=== PATIENT | female | born 1945 | race Caucasian/White ===

== ENCOUNTER → 2017-05-09 | Day surgery (SDC) | payer MEDICARE, OTHER ==
[~2017-05-09] VITALS: Ht 167.6 cm; Wt 97.6 kg
[~2017-05-09] MED LIST: *morphine SULFATE 10 MG/ML PERIprocedure ONLY ONE; ASCOPOW PO; BELLADONNA ALKALOIDS/OPIUM 60 MG SUPP RECTAL ONE; BUPIVACAINE HCL PF 0.5% 30 ML VIAL ONE; CHLORHEXIDINE GLUCONATE 2 % 1 PACK (2 CLOTHS) TOPICAL PRN; DO NOT ADM ANY ANTICOAGULANT DRUGS PRN; ERGO2000 PO; INSULIN HUMAN REGULAR 1,000 UNITS/10 ML VIAL SQ PRN; IOHEXOL 300 MG/ML 100 ML BTL (for Rad CT) OTHER ONE; LACTATED RINGER'S 1000 ML IV PRN; LACTCAP8 PO; MAGN100T2 PO; METF500T4 PO; METOPROLOL TARTRATE 25 MG TAB PO PRN; ONDANSETRON HCL 4 MG/2 ML VIAL IV PUSH PRN; POVIDONE IODINE 5% (ANTISEPSIS KIT) 4 APPLICATIONS EACH NARE PRN; SODIUM CHLORID 0.9% 500 ML IV PRN; VALS1TAB70 PO; VITALIQ PO; ceFAZolin 1,000 MG/NS 100 ML IV SCH; oxyCODONE/ACETAMINOPHEN 5 MG/325 MG TAB PO PRN
[2017-05-09 10:08] LABS: AUTOMATED NEUTROPHIL # 3.7 TH/MM3 (1.8-7.7); BASOPHIL # 0.1 TH/MM3 (0-0.2); EOSINOPHIL # 0.1 TH/MM3 (0-0.4); EOSINOPHIL % 2.1 % (0.0-4.0); HEMATOCRIT 40.6 % (35.0-46.0); HEMOGLOBIN 13.8 GM/DL (11.6-15.3); LYMPH % 28.8 % (9.0-44.0); LYMPHOCYTE # 1.7 TH/MM3 (1.0-4.8); MEAN CELL VOLUME 93.7 FL (80.0-100.0); MEAN CORPUSCULAR HEMOGLOBIN 31.8 PG (27.0-34.0); MEAN PLATELET VOLUME 8.2 FL (7.0-11.0); MONO % 7.3 % (0.0-8.0); MONOCYTE # 0.4 TH/MM3 (0-0.9); NEUT % 60.8 % (16.0-70.0); PLATELET COUNT 195 TH/MM3 (150-450); RED BLOOD COUNT 4.34 MIL/MM3 (4.00-5.30); RED CELL DISTRIBUTION WIDTH 13.2 % (11.6-17.2)
--- NOTE | 2017-05-09 12:14 | PD.OP ---
Operative Report Date of Surgery: May 09, 2017 Preoperative Diagnosis: Hematuria, irritative voiding systems, history of positive urine cytology, recurrent urinary tract infections Postoperative Diagnosis: Cystitis, hematuria, irritative voiding symptoms with a history of a positive urine cytology, a current urinary tract infections Procedure: Cystoscopy with multiple bladder biopsies, fulguration of right lateral wall, selective urine cytologies and bilateral retrograde studies, with instillation of Marcaine into the bladder Anesthesia: Gen. LMA Surgeon: Murtaza Boyer Final Block Press Operator(s): None Resident Surgeon: None Operation and Findings: 71-year-old female presents with history of a positive urine cytology the past with hematuria and irritative voiding systems with recurrent urinary tract infections in the past. Decision was made to bring the patient to the operating room to undergo cystoscopy with bladder biopsies with bilateral retrograde studies and selective cytologies. Risk and benefits were discussed preoperatively and she is willing to proceed. The patient was brought to the operating room and identified by myself as Liana Gutierrez. She was placed in the dorsal lithotomy position, prepped and draped in usual sterile fashion, received preprocedure antibiotics and general endotracheal tube anesthesia was administered. 22 Dominican scope was inserted into the bladder. [address] showed erythema throughout the trigone and primarily along the right lateral wall. This area was erythematous and would bleed easily. A 5 Dominican opening catheter was inserted into the right ureteral orifice. Saline was injected into the right collecting system and a selective cytology from this area was sent. A retrograde pyelogram was performed. No filling defects or abnormalities were identified within the right ureter or collecting system. This was repeated again on the left side and no abnormalities were identified on the retrograde pyelogram. Selective cytology was also sent from the left collecting system. Using the cold cup biopsy forcep, multiple bladder biopsies were taken from the right lateral wall dome and left lateral wall. These areas were then fulgurated with the rollerball. The right lateral wall, due to all the erythema , was fulgurated then with the rollerball. Care was taken to avoid the ureteral orifices. 30 cc of half percent Marcaine with then instilled in the bladder through a 16 Dominican Will catheter. The patient was awoken and transferred to room in stable condition. She tolerated the procedure well. She 'll follow-up in the office in a few weeks to undergo review of her pathology report. She may need to be placed on suppressive antibiotics in the future due to findings of cystitis. We will await biopsy results. Murtaza Boyer DO May 09, 2017 12:14
--- NOTE | 2017-05-09 13:09 | RADRPT ---
EXAM DATE/TIME: 05/09/2017 11:32 [facility] COMPARISON: No previous studies available for comparison. INDICATIONS : Bladder biopsy, diliated ureters, obstruction. 2.40 minutes 9 CONTRAST: Instilled by Ordering Physician MEDICAL HISTORY : Renal calculi. SURGICAL HISTORY : None. ENCOUNTER: Initial ACUITY: 1 day PAIN SCORE: Non-responsive. LOCATION: Bilateral abdomen FINDINGS: 7 images were recorded digitally in the operating room using C-arm during retrograde pyelogram. Contr ast is present within the collecting system and ureters. CONCLUSION: Intraoperative images. Merlin Busch MD on May 09, 2017 at 13:06 Board Certified Radiologist. This report was verified electronically.
[2017-05-09 14:22] VITALS: BP 158/73; PULSE 54; RESP 20; TEMP 97.5; O2SAT 97
--- NOTE | 2017-05-10 09:53 | EKG ---
Date Performed: 05/09/2017 Time Performed: 08:49:16 PTAGE: 71 years EKG: Sinus rhythm WITH OCCASIONAL VENTRICULAR PREMATURE COMPLEXES LEFT BUNDLE BRANCH BLOCK ABNORMAL ECG Compared to PREVIOUS TRACING , left bundle branch block is new, clinical correlation is recommended. PREVIOUS TRACIN12/30/2008 11.18 DOCTOR: Charbel Tsang Interpretating Date/Time 05/10/2017 09:53:00
== END | disposition home or self-care (01) ==
LOC: HSDC 08:14
PROVIDERS: ATTEND Urology
DX: N39.0 Urinary tract infection, site not specified (principal); N32.81 Overactive bladder; I10 Essential (primary) hypertension; E11.9 Type 2 diabetes mellitus without complications; Z79.84 Long term (current) use of oral hypoglycemic drugs; Z87.442 Personal history of urinary calculi
CPT/HCPCS: 00910; 36415; 52204; 74420; 82948; 85025; 88112; 88305; 93005; C1769; J0690; J2270; J3010; Q9967